=== PATIENT | female | born 1990 | race Two or more races ===

== ENCOUNTER 2021-03-19 18:08 | Emergency (ER) | payer OTHER ==
[~2021-03-19] VITALS: Ht 170.2 cm; Wt 85.3 kg
[2021-03-19 18:15] VITALS: BP 135/75
--- NOTE | 2021-03-19 18:17 | NUR ---
TO ER BED 1, C/O SUPRA-PUBIC PAIN AND DYSURIA X 3 DAYS, A&OX4
--- NOTE | 2021-03-19 18:49 | NUR ---
URINE COLLECTED AND SENT TO LAB
[2021-03-19 19:00] LABS: BILIRUBIN,URINE NEGATIVE (NEGATIVE); COLOR,URINE YELLOW (YELLOW); LEUKOCYTE ESTERASE ,URINE TRACE (NEGATIVE); NITRITE, URINE NEGATIVE (NEGATIVE); PH,URINE 6.5 (5.0-8.0); PROTEIN,URINE NEGATIVE (NEGATIVE); UGLUCOSE NEGATIVE (NEGATIVE)
[2021-03-19 19:19] LABS: BACTERIA,URINE 4+ /HPF (None Seen); SQUAMOUS EPITHELIAL CELL,UR Few /HPF (None Seen)
[2021-03-19] MEDS ORDERED: CEPH500C2 PO (20:01)
== END 2021-03-19 20:30 | disposition home or self-care (01) ==
LOC: ER 18:08
DX: R30.0 Dysuria (principal)
CPT/HCPCS: 81001; 84703-TC; 87086-TC; 87186-TC; 87491; 87591